=== PATIENT | male | born 1950 | race Caucasian/White ===

== ENCOUNTER 2020-09-21 08:00 | Outpatient (CLI) | payer MEDICARE, OTHER | END 2020-09-21 23:59 | disposition home or self-care (01) | LOC: LAB.S 08:00 | PROVIDERS: ATTEND Emergency Medicine | DX: N41.9 Inflammatory disease of prostate, unspecified (principal); R39.15 Urgency of urination | CPT/HCPCS: 87086 ==

== ENCOUNTER 2023-06-25 17:06 | Emergency (ER) | payer MEDICARE, OTHER ==
--- NOTE | 2023-06-25 17:44 | ED Physician Documentation ---
PD HPI ABD PAIN - Stated complaint Stated Complaint: ABD PX/DIARRHEA/VOMIT - Chief complaint Chief Complaint: Abd Pain - History obtained from History obtained from: Patient - Additional information Additional information: 72-year-old gentleman with history of radiation for prostate cancer and remote cholecystectomy presents for evaluation with his of abdominal pain. 4 days ago he developed some severe abdominal pain and then had a very "long bowel movements with small marbles in it." The next day the pain was not so bad but he had nausea and vomiting. The next day, yesterday developed 2 episodes of diarrhea and today had to more normal bowel movements but one of them was black. He took a leftover hydrocodone from prior kidney stones (which this feels nothing like to him) which was modestly effective and declines pain medication on initial evaluation. PD PAST MEDICAL HISTORY - Past Medical History Past Medical History: No : Kidney stones, Other Other Past Medical History: prostate cancer - Past Surgical History Past Surgical History: Yes General: Cholecystectomy Ortho: Rotator cuff repair, Other - Present Medications Home Medications: Ambulatory Orders Medication Instructions Recorded Confirmed Oxycodone HCl/Acetaminophen 1 - 2 each PO Q6H PRN #14 tablet 06/25/23 [Percocet 5-325 mg Tablet] - Allergies Allergies/Adverse Reactions: Allergies Allergy/AdvReac Type Severity Reaction Status Date / Time No Known Drug Allergies Allergy Verified 06/25/23 17:22 - Social History Does the pt smoke?: No Smoking Status: Never smoker Does the pt drink ETOH?: Yes Does the pt have substance abuse?: No - Immunizations Immunizations are current?: Yes PD ED PE NORMAL - Vitals Vital signs reviewed: Yes - General General: Alert and oriented X 3, No acute distress - Cardiac Cardiac: RRR, No murmur - Respiratory Respiratory: No respiratory distress, Clear bilaterally - Abdomen Abdomen: Other (Modest lower abdominal tenderness left more than right without surgical signs) - Extremities Extremities: No edema, No calf tenderness / cord - Neuro Neuro: Alert and oriented X 3 Results - Vitals Vitals: Vital Signs - 24 hr 06/25/23 17:12 Temperature 36.1 C L Heart Rate 58 L Respiratory 15 Rate Blood Pressure 142/73 H O2 Saturation 99 Oxygen O2 Source Room air - Labs Labs: Laboratory Tests 06/25/23 06/25/23 06/25/23 17:45 17:45 17:45 WBC 5.9 RBC 4.97 Hgb 15.1 Hct 45.8 MCV 92.2 MCH 30.4 MCHC 33.0 RDW 13.4 Plt Count 186 MPV 8.8 Neut # (Auto) 5.0 Lymph # (Auto) 0.4 L Larue # (Auto) 0.5 Eos # (Auto) 0.0 Baso # (Auto) 0.0 Absolute Nucleated RBC 0.00 Nucleated RBC % 0.0 Sodium 137 Potassium 4.3 Chloride 104 Carbon Dioxide 24 Anion Gap 9.0 BUN 19 Creatinine 1.1 Estimated GFR (MDRD) 65 L Glucose 132 H Calcium 9.5 Total Bilirubin 0.6 AST 20 ALT 19 Alkaline Phosphatase 71 Total Protein 7.1 Albumin 4.0 Globulin 3.1 Albumin/Globulin Ratio 1.3 Lipase 20 Urine Color YELLOW Urine Clarity HAZY Urine pH 5.5 Ur Specific [place] >=1.030 H Urine Protein NEGATIVE Urine Glucose (UA) NEGATIVE Urine Ketones 15 H Urine Occult Blood MODERATE H Urine Nitrite NEGATIVE Urine Bilirubin NEGATIVE Urine Urobilinogen 0.2 (NORMAL) Ur Leukocyte Esterase NEGATIVE Urine RBC 6-10 H Urine WBC 0-3 Ur Squamous Epith Cells FEW Squamous Urine Bacteria None Seen Ur Microscopic Review INDICATED Urine Culture Comments NOT INDICATED - Rads (name of study) CT a/p Relevant Findings:: Final report received, EMP independent interpretation of test PD Medical Decision Making - ED course ED course: He presents with abdominal pain. History of renal colic but says this feels different. CT imaging demonstrates a 4 mm mid ureteral stone on the right with hydronephrosis. On my view of the CT it actually looks a little bigger, closer to 6 mm. CBC, CMP, and urinalysis were normal/negative except for hematuria and concentrated urine. Patient planning to leave for [place] [address] Spann who is on-call. Says he can travel with a stent in but not with a blocked stone so plans to see him before that. Departure - Departure Disposition: 01 Home, Self Care Clinical Impression: Renal colic Condition: Good Record reviewed to determine appropriate education?: Yes Instructions: ED Stone Renal W Colic Prescriptions: Oxycodone HCl/Acetaminophen [Percocet 5-325 mg Tablet] 1 - 2 each PO Q6H PRN #14 tablet PRN Reason: pain Comments: You were seen today for a fairly decent sized kidney stone on the right side which is causing your pain. You are planning to leave for [place] on July 12 and I did discuss your case by phone tonight with Dr. Spann, our urologist who given the circumstances wants to see you soon with potential surgery on July 06. We discussed putting you on Flomax, but I did not prescribe that given that you have not tolerated it in the past due to orthostasis. Call Dr. Spann's office tomorrow. I sent your prescription electronically to [facility] in [place]. I am prescribing a short course of narcotic pain medication for you. These are potentially dangerous and addictive medications that should be used carefully. These medications may constipate you. Take an [id number] stool softener (docusate) twice daily with plenty of water while taking these medications. If you go 24 hours without a bowel movement, take tauy-[id number] miralax, per package instructions. Do not drink or drive while taking these medications. If you received narcotic or sedating medications while in the emergency department, do not drive for 24 hours. Store this medication in a safe, secure place and out of reach of children. It is a violation of federal law to give or sell this medication to another person or to use in a manner other than prescribed. The ED will not refill narcotic prescriptions, including prescriptions lost or stolen. To dispose of unwanted medications: 1. [facility] provides a [facility] box for medication in pill form only (no liquids) 8:00 am to 4:30 p.m. Thursday-Thursday in the lobby of the [facility], [address] [place] [address]. Empty pills into ziplock bag before disposal. Call [phone] for information. 2.[facility]erral [facility] is a free service available to all [facility] residents. Go to [email or web address] Note that many narcotic pain relievers also contain Tylenol/acetaminophen. Please ensure that your total dose of acetaminophen from all sources does not exceed 3 g (3000 mg) per day. Forms: PCP List
[2023-06-25 18:16] LABS: BASOPHILS % (AUTO) 0.2 %; HCT - HEMATOCRIT 45.8 % (42.0-52.0); HGB - HEMOGLOBIN 15.1 g/dL (14.0-18.0); LYMPHOCYTES # (AUTO) 0.4 10^3/uL (1.5-3.5); LYMPHOCYTES % (AUTO) 6.5 %; MEAN CORPUSCULAR HEMOGLOBIN 30.4 pg (27.0-31.0); MEAN CORPUSCULAR VOLUME 92.2 fL (80.0-94.0); MEAN PLATELET VOLUME 8.8 fL (7.4-11.4); MONOCYTES # (AUTO) 0.5 10^3/uL (0.0-1.0); MONOCYTES % (AUTO) 7.7 %; NEUTROPHILS % (AUTO) 85.3 %; PLT - PLATELET COUNT 186 10^3/uL (130-450); RED BLOOD COUNT 4.97 10^6/uL (4.70-6.10); RED CELL DISTRIBUTION WIDTH 13.4 % (12.0-15.0); WHITE BLOOD COUNT 5.9 x10^3/uL (4.8-10.8)
[2023-06-25 18:33] LABS: ALBUMIN/GLOBULIN RATIO 1.3 (1.0-2.2); BILIRUBIN,TOTAL 0.6 mg/dL (0.2-1.0); CALCIUM 9.5 mg/dL (8.5-10.3); CREATININE 1.1 mg/dL (0.6-1.3); POTASSIUM 4.3 mmol/L (3.5-4.5); TOTAL PROTEIN 7.1 g/dL (6.4-8.9)
[2023-06-25 18:34] LABS: BILIRUBIN,URINE NEGATIVE (NEGATIVE); GLUCOSE, URINE (UA) NEGATIVE (NEGATIVE); KETONES,URINE (UA) 15 mg/dL (NEGATIVE); LEUKOCYTE ESTERASE, URINE NEGATIVE (NEGATIVE); NITRITE,URINE NEGATIVE (NEGATIVE); OCCULT BLOOD,URINE MODERATE (NEGATIVE); PH,URINE 5.5 PH (5.0-7.5); PROTEIN,URINE NEGATIVE (NEGATIVE); UROBILINOGEN,URINE 0.2 (NORMAL) E.U./dL (NORMAL)
[2023-06-25 18:38] LABS: CLARITY,URINE HAZY (CLEAR)
[2023-06-25] MEDS ORDERED: iohexoL-300 100 ML VIAL ONE (18:53)
[2023-06-25 18:59] LABS: WBC,URINE 0-3 /HPF (0-3)
[2023-06-25 19:00] LABS: BACTERIA,URINE None Seen /HPF (None Seen); SQUAMOUS EPITHELIAL CELL,UR FEW Squamous (<= Few)
--- NOTE | 2023-06-25 19:48 | CT Report ---
PROCEDURE: Abdomen/Pelvis W INDICATIONS: iv only abd pain CONTRAST: Omni 300 100ml TECHNIQUE: After the administration of intravenous contrast, a CT scan of the abdomen and pelvis was performed. Images were recorded and evaluated at appropriate window settings. Reformats: coronal and sagittal. F or radiation dose reduction, the following was used: automated exposure control, adjustment of mA and /or kV according to patient size. COMPARISON: None. FINDINGS: Image quality: Diagnostic. Lower chest: Cardiomegaly. Liver: Hepatic steatosis. Gallbladder and biliary tree: Surgically absent. No biliary dilation, accounting for post-cholecystec niurka state. Spleen: No splenomegaly. Pancreas: No pancreatic ductal dilation. Adrenals: No adrenal nodule. Kidneys and ureters: Obstructing 4 mm stone in the proximal right ureter. Moderate right-sided hydron ephrosis. Moderate burden of nonobstructing, bilateral punctate nephrolithiasis. Stomach, bowel and peritoneum: No bowel distension. No pathologic free fluid. Diverticulosis without evidence of diverticulitis. Lymph nodes: No central or retroperitoneal adenopathy. Vessels: No infrarenal aortic aneurysm. PELVIS Reproductive organs: Unremarkable. Bladder: No abnormal wall thickening, accounting for underdistention. Pelvic lymph nodes: No pelvic adenopathy by size criteria. Bones: No aggressive osseous abnormality. Degenerative disc disease. Other: Small inguinal hernias containing fat. IMPRESSION: Obstructing 4 mm stone in the proximal right ureter, with moderate hydronephrosis. Reviewed by: Gilson Mckeon MD on 06/25/2023 7:47 PM PDT Approved by: Gilson Mckeon MD on 06/25/2023 7:47 PM PDT Station ID: [id number]
[2023-06-25] MEDS: HYDROmorphone 1 MG/ML CARPUJECT IVP STA (19:59)
[2023-06-25] MEDS: oxyCODONE/ACET 5/325 Prepack 4 PO STA (20:09)
[2023-06-25 20:40] VITALS: BP 138/57; O2SAT 95
[2023-06-25] MEDS: iohexoL-300 100 ML VIAL IVP ONE (21:07)
== END 2023-06-25 20:36 | disposition home or self-care (01) ==
LOC: ED 17:06
DX: N13.2 Hydronephrosis with renal and ureteral calculous obstruction (principal); N23 Unspecified renal colic; Z85.46 Personal history of malignant neoplasm of prostate; Z87.442 Personal history of urinary calculi
CPT/HCPCS: 36415; 74177; 80053; 81001; 83690; 85025; 96374; 99284; 99285; J1170; Q9967; 81003; 87086